=== PATIENT | male | born 1995 | race Caucasian/White ===

== ENCOUNTER 2021-06-01 12:43 | Emergency (ER) | payer OTHER ==
[2021-06-01 12:52] VITALS: BP 140/88
[2021-06-01] MEDS ORDERED: BUFFERED LIDOCAINE 10 ML SYRINGE IU ONE (14:24)
--- NOTE | 2021-06-01 14:27 | ED Physician Documentation ---
PD HPI UPPER EXT INJURY - Stated complaint Stated Complaint: L INDEX FINGER LAC - Chief complaint Chief Complaint: Laceration - History obtained from History obtained from: Patient - Additonal information Additional information: Patient comes emergency department chief complaint of laceration to left index finger. He states that he was working on his boat and using a scissors grinder when the incident happened. He states that it struck the extensor surface of his left index finger PIP joint and that he sustained a laceration. He has had good movement of the joint since. He thinks his last tetanus was within the last 10 years. No other injuries. No numbness or tingling. No other complaints at this time. Nail is not involved. Review of Systems Ten Systems: 10 systems reviewed and negative Constitutional: reports: Reviewed and negative Eyes: reports: Reviewed and negative Ears: reports: Reviewed and negative Nose: reports: Reviewed and negative Throat: reports: Reviewed and negative Cardiac: reports: Reviewed and negative Respiratory: reports: Reviewed and negative GI: reports: Reviewed and negative : reports: Reviewed and negative Skin: reports: Laceration (s) Musculoskeletal: reports: Extremity pain Neurologic: reports: Reviewed and negative Psychiatric: reports: Reviewed and negative Endocrine: reports: Reviewed and negative Immunocompromised: reports: Reviewed and negative PD PAST MEDICAL HISTORY - Allergies Allergies/Adverse Reactions: Allergies Allergy/AdvReac Type Severity Reaction Status Date / Time codeine Allergy Unknown Verified 06/01/21 12:50 PD ED PE NORMAL - Vitals Vital signs reviewed: Yes - General General: Alert and oriented X 3, No acute distress, Well developed/nourished - HEENT HEENT: Atraumatic, PERRL, EOMI, Moist mucous membranes - Neck Neck: Supple, no meningeal sign - Cardiac Cardiac: Strong equal pulses - Respiratory Respiratory: No respiratory distress - Derm Derm: Normal color, Warm and dry, No rash, Other (1.5 cm laceration vertically over the PIP joint of left index finger dorsally. No active bleeding. No foreign body appreciated. Mild adjacent avulsion of skin and tissue.) - Extremities Extremities: No deformity - Neuro Neuro: Alert and oriented X 3 - Psych Psych: Normal mood, Normal affect Results - Vitals Vitals: Vital Signs - 24 hr 06/01/21 12:50 Heart Rate 73 Respiratory 16 Rate Blood Pressure 140/88 H O2 Saturation 97 Oxygen O2 Source Room air Procedures - Laceration (location) L index finger Length in cm: 1.5 Wound type: Linear Neurovascular status: Sensory intact, Motor intact, Vascular intact Tendon involvement: Tendon intact Anesthesia: Lidocaine 1% with epi Wound preparation: Betadine, Irrigated copiously NS, Wound explored, To the base Skin layer closure: Nylon, Interrupted, Size #-0 - enter number (4.0), Sutures - enter # (4) Other: Patient tolerated well, No complications, Neurovascular intact, Dressing applied, Tetanus UTD PD MEDICAL DECISION MAKING - ED course Complexity details: considered differential, d/w patient ED course: Laceration was repaired as above. Patient has been given instructions regarding wound care and the timeline for suture removal. We have discussed the usual indications for return. Departure - Departure Disposition: 01 Home, Self Care Clinical Impression: Laceration Condition: Stable Instructions: ED Laceration Hand Comments: Your wound has been repaired with 4 sutures today, which you will need to have removed in about 7 days. You may let water and soap run over the wound but please do not rub, scrub, or immerse the wound, as this may result in infection. You may follow[place] in clinic [place] base, urgent care, walk-in, or if needed, the emergency department, for your suture removal. If you develop redness or swelling spreading away from the wound, or if the wound splits open and drains pus, she you should have it rechecked immediately.
[2021-06-01] MEDS ORDERED: BACITRACIN ZINC OINT 1 PACKET TOP STA (14:51)
== END 2021-06-01 15:11 | disposition home or self-care (01) ==
LOC: ED 12:43
DX: S61.211A Laceration without foreign body of left index finger without damage to nail, initial encounter (principal); W29.8XXA Contact with other powered hand tools and household machinery, initial encounter; Y93.89 Activity, other specified; Y92.814 Boat as the place of occurrence of the external cause
CPT/HCPCS: 12001; 99282; 99283; A9270

== ENCOUNTER 2021-07-26 15:54 | Emergency (ER) | payer OTHER ==
[2021-07-26 16:07] VITALS: BP 138/80
[2021-07-26] MEDS ORDERED: NEOMYCIN/POLYMYX/DEXAMETH OPHTH DROPS 5 ML LEFTEYE STA (17:46)
--- NOTE | 2021-07-26 17:51 | ED Physician Documentation ---
PD HPI OPHTHO - Stated complaint Stated Complaint: FO IN LEFT EYE - Chief complaint Chief Complaint: Heent - History obtained from History obtained from: Patient - History of Present Illness Timing - onset: Enter time (1600), Today Timing - duration: Minutes Timing - details: Abrupt onset, Still present Location: Left Quality / character: Itching, Sharp Associated symptoms: Redness, Tearing, FB sensation. 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 He feels there is a foreign body under his lid on the left side every time he blinks he has a foreign body sensation. He does not have any change in his vision. Review of Systems Constitutional: denies: Fever Eyes: reports: Irritation. denies: Loss of vision, Decreased vision, Photophobia, Discharge Ears: denies: Ear pain Nose: denies: Congestion Respiratory: denies: Cough PD PAST MEDICAL HISTORY - Present Medications Home Medications: Ambulatory Orders Medication Instructions Recorded Confirmed Neomycin/Poly/Dex Ophth Drops 1 drops LEFTEYE QID #5 ml 07/26/21 [Maxitrol Ophth Drops] - Allergies Allergies/Adverse Reactions: Allergies Allergy/AdvReac Type Severity Reaction Status Date / Time codeine Allergy Unknown Verified 07/26/21 16:04 PD ED PE NORMAL - Vitals Vital signs reviewed: Yes (Hypertensive mild) - General General: Alert and oriented X 3, No acute distress, Well developed/nourished - HEENT HEENT: Atraumatic, PERRL, EOMI, Other (Examination of the left eye shows a symmetric pupil and iris without evidence of blood in the anterior chamber. There is no obvious foreign body in the conjunctive or over the cornea. 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, No motor deficit, No sensory deficit, Normal speech Eye Opening: Spontaneous Motor: Obeys Commands Verbal: Oriented GCS Score: 15 - Psych Psych: Normal mood, Normal affect Results - Vitals Vitals: Vital Signs - 24 hr 07/26/21 16:04 Temperature 36.5 C Heart Rate 64 Respiratory 16 Rate Blood Pressure 138/80 H O2 Saturation 98 Oxygen O2 Source Room air PD MEDICAL DECISION MAKING - ED course Complexity details: considered differential, d/w patient ED course: 25-year-old male with a corneal abrasion to his left eye is administered Maxitrol ophthalmic drops and he is instructed to follow-up with with ophthalmology if he has not had resolution of his symptoms tomorrow. Departure - Departure Disposition: 01 Home, Self Care Clinical Impression: Corneal abrasion, left Qualifiers: Encounter type: initial encounter Qualified Code(s): S05.02XA - Injury of conjunctiva and corneal abrasion without foreign body, left eye, initial encounter Condition: Stable Instructions: ED Eye Injury Corneal Abrasion Follow-Up: Errol Hutton MD [Provider Admit Priv/Credential] - Prescriptions: Neomycin/Poly/Dex Ophth Drops [Maxitrol Ophth Drops] 1 drops LEFTEYE QID #5 ml
== END 2021-07-26 18:15 | disposition home or self-care (01) ==
LOC: ED 15:54
DX: S05.02XA Injury of conjunctiva and corneal abrasion without foreign body, left eye, initial encounter (principal); X58.XXXA Exposure to other specified factors, initial encounter
CPT/HCPCS: 99282; 99284; J3490

== ENCOUNTER 2023-03-20 11:40 | Emergency (ER) | payer OTHER ==
[2023-03-20 12:18] VITALS: BP 155/85
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
== END 2023-03-20 12:52 | disposition home or self-care (01) ==
LOC: ED 11:40
DX: S63.602A Unspecified sprain of left thumb, initial encounter (principal); S63.502A Unspecified sprain of left wrist, initial encounter; V89.2XXA Person injured in unspecified motor-vehicle accident, traffic, initial encounter; Y93.89 Activity, other specified
CPT/HCPCS: 99283